=== PATIENT | female | born 1955 | race Caucasian/White ===

== ENCOUNTER 2017-02-01 12:50 | Emergency (ER) | payer BC ==
--- NOTE | 2017-02-01 13:42 | XRAY Preliminary Report ---
Exam: XR Chest 2 View PA/LAT IMPRESSION: Normal 2-view chest radiography. [facility] SITE ID: [id number]
--- NOTE | 2017-02-01 13:44 | XRAY Report ---
EXAM: CHEST RADIOGRAPHY EXAM DATE: 02/01/2017 01:25 PM. CLINICAL HISTORY: Cough. COMPARISON: None. TECHNIQUE: 2 views. FINDINGS: Lungs/Pleura: No focal opacities evident. No pleural effusion. No pneumothorax. Normal volumes. Mediastinum: Heart and mediastinal contours are unremarkable. Other: None. IMPRESSION: Normal 2-view chest radiography. [facility] Referring Provider Line: [phone] SITE ID: [id number]
--- NOTE | 2017-02-01 16:46 | ED Physician Documentation ---
PD HPI HEENT - Stated complaint Stated Complaint: COUGH, VOMITING, DIFFICULTY SWALLOWING - Chief complaint Chief Complaint: Resp - History obtained from History obtained from: Patient - History of Present Illness Timing - onset: Last night (She started preparing dinner and had a bite of meat and shrimp and felt that the got stuck. She did vomit up some shrimp but subsequently has not been able to swallow any fluids and will have vomiting of it. She also has had subsequent vomiting of saliva every 20 or 30 minutes. She did not sleep through the night. This has persisted through the day. She has had some episodes where food gets stuck for a few minutes at a time but has never had a persist like this before. She has not had any previous endoscopy for the stomach. She does have an appointment with a inside sales coordinator in a few weeks back home. She is visiting from [place] currently.) Timing - duration: Days (1) Timing - details: Abrupt onset, Still present Location: Throat Worsens: Swalllowing Associated symptoms: Unable to swallow. No: Fever Recently seen: Not recently seen Review of Systems Constitutional: denies: Fever, Chills Nose: denies: Rhinorrhea / runny nose, Congestion Throat: denies: Sore throat Cardiac: denies: Chest pain / pressure, Palpitations Respiratory: denies: Cough GI: reports: Nausea, Vomiting. denies: Abdominal Pain, Constipation, Diarrhea Neurologic: reports: Generalized weakness. denies: Near syncope PD PAST MEDICAL HISTORY - Past Medical History Cardiovascular: None Respiratory: None Neuro: None Endocrine/Autoimmune: None GI: Other (She has had difficulty swallowing with first bites at times with feeling of food blockage for a few minutes at a time. No history of ulcers per se.) - Allergies Allergies/Adverse Reactions: Allergies Allergy/AdvReac Type Severity Reaction Status Date / Time codeine Allergy Unknown Verified 02/01/17 13:07 PD ED PE NORMAL - Vitals Vital signs reviewed: Yes - General General: Alert and oriented X 3, Well developed/nourished, Other (Episodic emesis of saliva.) - HEENT HEENT: Pharynx benign - Neck Neck: Supple, no meningeal sign, No adenopathy - Cardiac Cardiac: RRR, No murmur - Respiratory Respiratory: Clear bilaterally - Abdomen Abdomen: Normal bowel sounds, Soft, Non tender, Non distended - Back Back: No CVA TTP - Derm Derm: Normal color, Warm and dry - Extremities Extremities: No tenderness to palpate, Normal ROM s pain, No edema, No calf tenderness / cord - Neuro Neuro: Alert and oriented X 3, No motor deficit, Normal speech Results - Vitals Vitals: Vital Signs - 24 hr 02/01/17 02/01/17 02/01/17 12:59 16:10 17:34 Temperature 36.9 C 36.4 C L Heart Rate 78 78 68 Respiratory 20 16 14 Rate Blood Pressure 186/98 H 173/77 H 161/68 H O2 Saturation 100 99 100 02/01/17 19:20 Temperature Heart Rate 66 Respiratory 18 Rate Blood Pressure 143/66 H O2 Saturation 99 Oxygen O2 Source Room air - Labs Labs: Laboratory Tests 02/01/17 02/01/17 17:16 17:16 WBC 9.0 RBC 4.51 Hgb 15.1 Hct 44.7 MCV 99.2 H MCH 33.5 H MCHC 33.8 RDW 13.0 Plt Count 248 MPV 7.7 L Neut # 5.9 Lymph # 2.1 [place] # 0.8 Eos # 0.2 Baso # 0.1 Absolute Nucleated RBC 0.00 Nucleated RBCs 0.0 Sodium 144 Potassium 4.1 Chloride 105 Carbon Dioxide 30 Anion Gap 9.0 BUN 13 Creatinine 0.9 Estimated GFR (MDRD) 64 L Glucose 104 H Calcium 9.7 Total Bilirubin 0.7 AST 21 ALT 20 Alkaline Phosphatase 93 Total Protein 7.2 Albumin 3.8 Globulin 3.4 Albumin/Globulin Ratio 1.1 Lipase 23 PD MEDICAL DECISION MAKING - ED course Complexity details: re-evaluated patient (No improvement with IV fluids and benzodiazepine with glucagon. She is also given Pepcid IV. With the doses of medicines we did try some carbonated soda but she is still unable to swallow. I talked with Dr. Cuadra are surgeon who said she does not scope for foreign bodies. She refers to GI. I talked with Dr. Tsai GI at [facility] is says to transfer to the ER for scoping there.), considered differential, d/w patient Departure - Departure Disposition: 02 Transfer Acute Care Hosp Clinical Impression: Food impaction of esophagus Qualifiers: Encounter type: initial encounter Qualified Code(s): T18.128A - Food in esophagus causing other injury, initial encounter Condition: Stable Record reviewed to determine appropriate education?: Yes
[2017-02-01] MEDS ORDERED: ONDANSETRON 4 MG/2 ML VIAL IVP STA (17:05)
[2017-02-01] MEDS ORDERED: SODIUM CHLORIDE 0.9% 1,000 ML IV ONE (17:05)
[2017-02-01] MEDS ORDERED: FAMOTIDINE 20 MG/50 ML 50 ML IV ONE ×2 (17:06→17:38)
[2017-02-01] MEDS ORDERED: GLUCAGON 1 MG/ML VIAL IVP STA (17:06)
[2017-02-01 17:23] LABS: BASOPHILS # (AUTO) 0.1 10^3/uL (0.0-0.1); BASOPHILS % (AUTO) 0.6 %; EOSINOPHILS # (AUTO) 0.2 10^3/uL (0.0-0.7); EOSINOPHILS % (AUTO) 2.2 %; HCT - HEMATOCRIT 44.7 % (37.0-47.0); HGB - HEMOGLOBIN 15.1 g/dL (12.0-16.0); LYMPHOCYTES # (AUTO) 2.1 10^3/uL (1.5-3.5); LYMPHOCYTES % (AUTO) 23.4 %; MEAN CORPUSCULAR HEMOGLOBIN 33.5 pg (27.0-31.0); MEAN CORPUSCULAR HGB CONC 33.8 g/dL (32.0-36.0); MEAN CORPUSCULAR VOLUME 99.2 fL (81.0-99.0); MEAN PLATELET VOLUME 7.7 fL (7.9-10.8); MONOCYTES # (AUTO) 0.8 10^3/uL (0.0-1.0); MONOCYTES % (AUTO) 8.5 %; NEUTROPHILS # (AUTO) 5.9 10^3/uL (1.5-6.6); NEUTROPHILS % (AUTO) 65.3 %; RED BLOOD COUNT 4.51 10^6/uL (4.20-5.40)
[2017-02-01 17:36] LABS: ALBUMIN/GLOBULIN RATIO 1.1 (1.0-2.2); BILIRUBIN,TOTAL 0.7 mg/dL (0.2-1.0); CALCIUM 9.7 mg/dL (8.5-10.3); CREATININE 0.9 mg/dL (0.4-1.0); POTASSIUM 4.1 mmol/L (3.5-5.0); TOTAL PROTEIN 7.2 g/dL (6.7-8.2)
[2017-02-01] MEDS ORDERED: ONDANSETRON 4 MG/2 ML VIAL ONE (17:38)
[2017-02-01] MEDS ORDERED: GLUCAGON 1 MG/ML VIAL ONE (17:38)
[2017-02-01] MEDS ORDERED: SODIUM CHLORIDE FLUSH 0.9% 10 ML SYRINGE IVP ONE (17:38)
[2017-02-01] MEDS ORDERED: diazePAM INJ 5 MG/ML SYRINGE IVP STA (17:54)
[2017-02-01] MEDS ORDERED: diazePAM INJ 5 MG/ML SYRINGE ONE (18:05)
[2017-02-01 19:20] VITALS: BP 143/66
== END 2017-02-01 20:07 | disposition short-term general hospital (02) ==
LOC: ED 12:50
DX: T18.128A Food in esophagus causing other injury, initial encounter (principal); X58.XXXA Exposure to other specified factors, initial encounter
CPT/HCPCS: 36415; 71020; 80053; 83690; 85025; 96374; 96375; 99283; 99284

== ENCOUNTER 2017-02-01 20:11 | Outpatient (CLI) | payer BC | END 2017-02-01 20:12 | disposition short-term general hospital (02) | LOC: EMS 20:11 | PROVIDERS: ATTEND Surgery | DX: K22.2 Esophageal obstruction (principal) | CPT/HCPCS: A0170; A0425; A0428 ==